=== PATIENT | male | born 1985 | race Caucasian/White ===

== ENCOUNTER 2017-03-08 21:57 | Inpatient (IN) | payer OTHER ==
[~2017-03-08] VITALS: Ht 177.8 cm; Wt 93.9 kg
[~2017-03-08 21:57] MED LIST: ADDERALL XR30 MG PO; ADVAIR 250/501 DISK; ATARAX,VISTARIL25 MG PO; BENZTROPINE MESY1 MG PO; CLONIDINE HCL0.1 MG PO; FOCALIN XR40 MG PO; HALDOL5 MG/ML IM; LEVAQUIN750 MG PO; LORATADINE10 M2; METHADOSE10 MG/1 ML; OMEPRAZOLE20 M2; PAROXETINE HCL20 MG; PROAIR HFA8.5 GM; PROZAC10 MG PO; QUETIAPINE FUM100 MG PO; RANITIDINE HCL150 MG; SEROQUEL12.5 MG PO; VENTOLIN HFA18 GM IH
[2017-03-08 22:57] LABS: EOSINOPHIL (%) 0.6 % (0-5); EOSINOPHIL COUNT 0.1 K/uL (0-0.3); HEMATOCRIT 38.6 % (38.0-50.0); IMMATURE GRANULOCYTE (%) 0.3 % (0.0-0.7); INSTRUMENT ABS NEUTROPHIL CT 9.3 K/uL; LYMPHOCYTE COUNT 1.7 K/uL (1.0-2.8); MCH 29.5 PG (29.0-34.0); MCHC 35.2 G/DL (30.0-36.0); MCV 83.7 FL (86-99); MEAN PLAT.VOLUME 9.4 uM^3 (9.0-12.4); MONOCYTE (%) 11.7 % (3-12); MONOCYTE COUNT 1.5 K/uL (0-0.8); NEUTROPHIL (%) 73.8 % (45-76); NEUTROPHIL COUNT 9.3 K/uL (1.8-6.4); PLATELET COUNT 254 K/uL (156-360); RBC DIS.WIDTH-CV 13.1 % (11.8-14.6); RBC DIS.WIDTH-SD 40.1 % (39-53); RED BLOOD COUNT 4.61 M/uL (4.00-5.50); WHITE BLOOD COUNT 12.6 K/uL (4.1-10.2)
[2017-03-08 23:05] LABS: ADD MIUA? YES; BILIRUBIN SMALL; BLOOD SMALL; COLOR AMBER ((YELLOW)); GLUCOSE (STRIP) NEGATIVE; KETONES NEGATIVE; LEUKOCYTES TRACE; NITRITE NEGATIVE; PROTEIN (STRIP) 100; SPECIFIC GRAVITY 1.039 (1.000-1.030)
[2017-03-08 23:06] LABS: CHLORIDE 103 mEq/L (99-109); POTASSIUM 3.5 mEq/L (3.7-5.4); SODIUM 134 mEq/L (136-147)
[2017-03-08 23:08] LABS: GLUCOSE 116 mg/dL (70-99)
[2017-03-08 23:09] LABS: ANION GAP 9 MEQ/L (2-14)
[2017-03-08 23:10] LABS: TOTAL BILIRUBIN 1.1 mg/dL (0.0-1.0)
[2017-03-08 23:11] LABS: BACTERIA NONE SEEN /HPF; EPITHELIAL CELLS RARE /HPF; MUCUS TRACE /LPF; UCUL ADDED? YES
[2017-03-08 23:12] LABS: ALKALINE PHOSPHATASE 91 IU/L (3-129); GFR ESTIMATE (CALCULATED) > 59 mL/min/
[2017-03-08 23:13] LABS: UREA NITROGEN (BUN) 16 mg/dL (9-23)
[2017-03-09] MEDS ORDERED: ABILIFY MAINTE400 M1 IM (01:42)
[2017-03-09] MEDS ORDERED: BUSPAR15 MG PO (01:47)
[2017-03-09] MEDS ORDERED: LISINOPRIL10 MG PO (01:47)
[2017-03-09] MEDS ORDERED: PERCOCET 5/31 TABLET PO (01:56)
[2017-03-09 06:17] VITALS: BP 119/64
[2017-03-09 10:01] LABS: BASOPHIL COUNT 0.1 K/uL (0-0.1); EOSINOPHIL (%) 0.7 % (0-5); EOSINOPHIL COUNT 0.1 K/uL (0-0.3); HEMATOCRIT 37.9 % (38.0-50.0); IMMATURE GRANULOCYTE (%) 0.4 % (0.0-0.7); IMMATURE GRANULOCYTE COUNT 0.1 K/uL; INSTRUMENT ABS NEUTROPHIL CT 11.5 K/uL; LYMPHOCYTE COUNT 1.3 K/uL (1.0-2.8); MCH 28.8 PG (29.0-34.0); MCHC 33.8 G/DL (30.0-36.0); MCV 85.4 FL (86-99); MEAN PLAT.VOLUME 9.6 uM^3 (9.0-12.4); MONOCYTE (%) 10.4 % (3-12); MONOCYTE COUNT 1.5 K/uL (0-0.8); NEUTROPHIL (%) 78.9 % (45-76); NEUTROPHIL COUNT 11.5 K/uL (1.8-6.4); PLATELET COUNT 232 K/uL (156-360); RBC DIS.WIDTH-CV 13.1 % (11.8-14.6); RBC DIS.WIDTH-SD 40.6 % (39-53); RED BLOOD COUNT 4.44 M/uL (4.00-5.50); WHITE BLOOD COUNT 14.6 K/uL (4.1-10.2)
[2017-03-09 10:49] LABS: ANION GAP 11 MEQ/L (2-14); CHLORIDE 102 MEQ/L (99-109); POTASSIUM 3.9 MEQ/L (3.7-5.4); SAMPLE HEMOLYSIS CHECK 0; SAMPLE ICTERIC CHECK 0; SAMPLE LIPEMIA CHECK 0; SODIUM 135 MEQ/L (136-147)
[2017-03-09 10:54] LABS: GFR ESTIMATE (CALCULATED) > 59 mL/min/; GLUCOSE 163 mg/dL (70-99); UREA NITROGEN (BUN) 13 mg/dL (9-23)
[2017-03-09 11:51] VITALS: BP 119/58
[2017-03-09 15:33] VITALS: BP 93/51
[2017-03-09 19:39] VITALS: BP 122/58
[2017-03-09 23:12] VITALS: BP 117/59
[2017-03-10 03:18] VITALS: BP 126/60
[2017-03-10 07:14] LABS: EOSINOPHIL (%) 0.3 % (0-5); HEMATOCRIT 36.7 % (38.0-50.0); IMMATURE GRANULOCYTE (%) 0.6 % (0.0-0.7); IMMATURE GRANULOCYTE COUNT 0.1 K/uL; INSTRUMENT ABS NEUTROPHIL CT 11.2 K/uL; LYMPHOCYTE COUNT 1.6 K/uL (1.0-2.8); MCH 28.7 PG (29.0-34.0); MCHC 33.5 G/DL (30.0-36.0); MCV 85.7 FL (86-99); MEAN PLAT.VOLUME 9.5 uM^3 (9.0-12.4); MONOCYTE (%) 7.2 % (3-12); NEUTROPHIL (%) 80.2 % (45-76); NEUTROPHIL COUNT 11.2 K/uL (1.8-6.4); PLATELET COUNT 256 K/uL (156-360); RBC DIS.WIDTH-SD 40.5 % (39-53); RED BLOOD COUNT 4.28 M/uL (4.00-5.50)
[2017-03-10 08:00] VITALS: BP 112/51
[2017-03-10 08:05] LABS: ANION GAP 7 MEQ/L (2-14); CHLORIDE 108 MEQ/L (99-109); GFR ESTIMATE (CALCULATED) > 59 mL/min/; POTASSIUM 4.1 MEQ/L (3.7-5.4); SAMPLE HEMOLYSIS CHECK 0; SAMPLE ICTERIC CHECK 0; SAMPLE LIPEMIA CHECK 0; SODIUM 140 MEQ/L (136-147); UREA NITROGEN (BUN) 11 mg/dL (9-23)
[2017-03-10 08:06] LABS: GLUCOSE 116 mg/dL (70-99)
[2017-03-10 11:23] LABS: HBSG INDEX 0.27; HPCA INDEX 0.07
[2017-03-10 11:24] LABS: HIV INDEX 0.12; HIV-1/2 AB/AG COMBO Nonreactive
[2017-03-10 16:08] VITALS: BP 107/54
[2017-03-10 23:57] VITALS: BP 129/56
[2017-03-11 08:00] VITALS: BP 135/70
[2017-03-11 16:19] VITALS: BP 122/58
[2017-03-11 23:26] VITALS: BP 120/68
[2017-03-12 08:13] VITALS: BP 109/64
[2017-03-12] MEDS ORDERED: NICOTINE PATCH1 EAC1 TD (11:37)
[2017-03-12] MEDS ORDERED: TRAMADOL HCL50 MG PO (11:37)
[2017-03-12] MEDS ORDERED: AUGMENTIN875 MG PO (11:37)
[2017-03-12] MEDS ORDERED: PREDNISONE10 MG PO (11:37)
== END 2017-03-12 12:55 | disposition home or self-care (01) | DRG 602 ==
LOC: EXP 21:57 → EME 21:57 → EDOF 03-09 04:43 → 5SOUTH 03-09 04:43 → ENRESERV 03-09 04:45 → 5SOUTH 03-09 06:06
PROVIDERS: Hospitalist; Internal Medicine; Internal Medicine Infectious Disease; Physician Assistant
DX: L02.512 Cutaneous abscess of left hand (principal); J96.01 Acute respiratory failure with hypoxia; I82.812 Embolism and thrombosis of superficial veins of left lower extremity; J40 Bronchitis, not specified as acute or chronic; E87.1 Hypo-osmolality and hyponatremia; I10 Essential (primary) hypertension; F17.210 Nicotine dependence, cigarettes, uncomplicated; F20.9 Schizophrenia, unspecified; F19.10 Other psychoactive substance abuse, uncomplicated; E87.6 Hypokalemia; F11.20 Opioid dependence, uncomplicated; F31.9 Bipolar disorder, unspecified; K21.9 Gastro-esophageal reflux disease without esophagitis; Z68.29 Body mass index [BMI] 29.0-29.9, adult
CPT/HCPCS: 71020; 73201; 76882; 80048; 80053; 80202; 81003; 83605; 85025; 86703; 86803; 87040; 87070; 87075; 87076; 87086; 87185; 87205; 87340; 90686; 93971; 94640; 94640 76; 94760; 99202; 99281; 99285; J0696; J1650; J1885; J2270; J2405; J3370; J7030; J7512; S0020